=== PATIENT | male | born 1985 ===

== ENCOUNTER 2018-10-05 12:38 | Emergency (ER) | payer SELFPAY ==
[~2018-10-05] VITALS: Ht 162.6 cm; Wt 77.0 kg
[2018-10-05 12:39] VITALS: BP 130/87
[2018-10-05 15:03] LABS: HIV ANTIBODY 1&2 RAPID NON-REACTIVE (Neg)
[2018-10-08 05:08] LABS: HEP B CORE AB, IGM Negative (Negative); HEP B CORE AB, TOT Negative (Negative); HEPATITIS C ANTIBODY <0.1 s/co ratio (0.0-0.9)
== END 2018-10-05 13:35 | disposition home or self-care (01) ==
LOC: ER 12:39
DX: Z77.21 Contact with and (suspected) exposure to potentially hazardous body fluids (principal)
CPT/HCPCS: 36415; 86703; 86704; 86705; 86706; 86803; 99283